=== PATIENT | female | born 1985 | race Two or more races ===

== ENCOUNTER 2020-12-30 19:00 | Inpatient (IN) | payer BC ==
[2020-12-30 20:19] VITALS: BMI 28.8
[2020-12-30] MEDS ORDERED: DINOPROSTONE 10 MG VAGINAL SUPPOSITORY VG ONE (20:45)
[2020-12-30] MEDS ORDERED: BENZOCAINE 28 GM HEMORRHOIDAL OINTMENT TP PRN (21:18)
[2020-12-30] MEDS ORDERED: BENZOCAINE 20% 57 GM BOTTLE TP PRN (21:18)
[2020-12-30] MEDS ORDERED: ACETAMINOPHEN 325 MG TABLET (FP) PO PRN (21:18)
[2020-12-30] MEDS ORDERED: BISACODYL 10 MG SUPP.RECT RC PRN (21:18)
[2020-12-30] MEDS ORDERED: METHYLERGONOVINE MALEATE 0.2 MG/1 ML AMP IM PRN (21:18)
[2020-12-30] MEDS ORDERED: IBUPROFEN 600 MG TABLET (FP) PO PRN (21:18)
[2020-12-30] MEDS ORDERED: WITCH HAZEL 50% (TUCKS) 40 PAD/JAR PAD TP PRN (21:18)
[2020-12-30] MEDS ORDERED: OXYTOCIN 20 UNITS in 0.9% NS 1,000 ML IV SCH (21:30)
[2020-12-30 23:41] LABS: BASO % 0.3 % (0-2.0); EOS % 0.7 % (0-4.5); HEMATOCRIT 38.6 % (32.4-45.2); HEMOGLOBIN 13.4 GM/dL (10.7-15.3); LYMPH % 24.9 % (8-40); MCH 33.2 pg (25.7-33.7); MCHC 34.7 g/dl (32.0-36.0); MEAN CELL VOLUME 95.9 fl (80-96); MEAN PLT VOLUME 8.9 fl (7.5-11.1); MONO % 7.5 % (3.8-10.2); NEUT % 66.6 % (42.8-82.8); PLATELET COUNT 272 10^3/uL (134-434); RBC 4.02 M/mm3 (3.60-5.2); WHITE BLOOD COUNT 12.3 K/mm3 (4.0-10.0)
[2020-12-30 23:45] LABS: INR 0.86 (0.83-1.09); PROTHROMBIN TIME (PATIENT) 10.5 SEC (9.7-13.0)
[2020-12-30 23:48] LABS: ACTIVATED PTT 25.3 SECONDS (25.2-36.5)
[2020-12-30 23:59] LABS: CALCIUM 8.6 mg/dL (8.5-10.1)
[2020-12-31 00:03] LABS: CREATININE 0.6 mg/dL (0.55-1.3)
[2020-12-31 00:57] LABS: HIV INTERPRETATION NEGATIVE (NEGATIVE)
[2020-12-31] MEDS: ELECTROLYTE-148 SOLN 1,000 ML IV SCH ×2 (06:05→13:00)
[2020-12-31] MEDS ORDERED: FERROUS SO4 325 MG TABLET (FP) PO SCH (08:00)
[2020-12-31] MEDS ORDERED: OXYTOCIN 30 UNITS in 0.9% NS 30 UNIT/500 ML INFUS.BAG IVPB ONE ×2 (09:20→16:21)
[2020-12-31] MEDS: OXYTOCIN 30 UNITS in 0.9% NS 30 UNIT/500 ML INFUS.BAG IVPB SCH (09:20)
[2020-12-31] MEDS ORDERED: PRENATAL VITAMINS W/ FOLIC ACID TABLET (FP) PO SCH (10:00)
[2020-12-31] MEDS ORDERED: valACYclovir HCL 500 MG TABLET (FP) PO ONE (21:30)
[2020-12-31] MEDS ORDERED: LEVOTHYROXINE NA 25 MCG TABLET (FP) PO ONE (21:30)
[2020-12-31] MEDS ORDERED: SENNOSIDES/DOCUSATE COMBO (SENNA PLUS) TABLET (UD) PO PRN (22:00)
[2021-01-01] MEDS ORDERED: morphine SULFATE/PF 0.5 MG/ML (2cc Syringe - QUVA) ONE (01:48)
[2021-01-01] MEDS ORDERED: IBUPROFEN 800 MG/8 ML IJ IVPB PRN (03:10)
[2021-01-01] MEDS ORDERED: ACETAMINOPHEN 1000 MG/100 ML VIAL (NON FORMULARY) IVPB PRN (03:10)
[2021-01-01] MEDS ORDERED: CITRIC ACID/SODIUM CITRATE 30 ML UNIT-DOSE CUP PO ONE (03:10)
[2021-01-01] MEDS ORDERED: SENNOSIDES/DOCUSATE COMBO (SENNA PLUS) TABLET (UD) PO PRN (03:10)
[2021-01-01] MEDS ORDERED: ONDANSETRON 4 MG/2 ML VIAL IVPB PRN (03:10)
[2021-01-01] MEDS ORDERED: OXYTOCIN 20 UNITS in 0.9% NS 20 UNIT/1,000 ML INFUS.BAG IV SCH (03:15)
[2021-01-01 03:51] LABS: HEMATOCRIT 34.7 % (32.4-45.2); HEMOGLOBIN 11.7 GM/dL (10.7-15.3); MCH 32.5 pg (25.7-33.7); MCHC 33.7 g/dl (32.0-36.0); MEAN CELL VOLUME 96.4 fl (80-96); MEAN PLT VOLUME 8.4 fl (7.5-11.1); PLATELET COUNT 231 10^3/uL (134-434); RDW 14.3 % (11.6-15.6); WHITE BLOOD COUNT 23.2 K/mm3 (4.0-10.0)
[2021-01-01] MEDS: ACETAMINOPHEN 325 MG TABLET (FP) PO PRN ×2 (04:00→21:01)
[2021-01-01] MEDS: METHYLERGONOVINE MALEATE 0.2 MG TABLET (FP) PO SCH ×5 (04:00→19:56)
[2021-01-01] MEDS ORDERED: OXYTOCIN 20 UNITS in 0.9% NS 20 UNIT/1,000 ML INFUS.BAG IV ONE ×2 (04:06→05:06)
[2021-01-01] MEDS ORDERED: METHYLERGONOVINE MALEATE 0.2 MG TABLET (FP) ONE (04:16)
[2021-01-01] MEDS ORDERED: IBUPROFEN 600 MG TABLET (FP) PO ONE (04:19)
[2021-01-01] MEDS ORDERED: ACETAMINOPHEN 325 MG TABLET (FP) ONE (04:19)
[2021-01-01] MEDS: IBUPROFEN 600 MG TABLET (FP) PO PRN ×3 (04:34→21:00)
[2021-01-01] MEDS: LEVOTHYROXINE NA 25 MCG TABLET (FP) PO SCH (06:34)
[2021-01-01] MEDS ORDERED: LEVOTHYROXINE NA 25 MCG TABLET (FP) PO ONE (07:50)
[2021-01-01 08:57] LABS: POC NITRAZINE POS
[2021-01-01] MEDS: SIMETHICONE 80 MG TAB.CHEW (FP) PO PRN ×2 (09:20→21:01)
[2021-01-01] MEDS ORDERED: CEFAZOLIN 2 GM in DEXTROSE 5%-WATER - 50 ML IVPB SCH (10:00)
[2021-01-01] MEDS: CEFAZOLIN 2 GM in DEXTROSE 5%-WATER 100 ML IVPB SCH ×2 (10:31→18:14)
[2021-01-01] MEDS: valACYclovir HCL 500 MG TABLET (FP) PO SCH (10:31)
[2021-01-01] MEDS: OXYTOCIN 30 UNITS in 0.9% NS 30 UNIT/500 ML INFUS.BAG IVPB SCH (20:54)
[2021-01-01] MEDS: ELECTROLYTE-148 SOLN 1,000 ML IV SCH (20:55)
[2021-01-02] MEDS: METHYLERGONOVINE MALEATE 0.2 MG TABLET (FP) PO SCH (00:17)
[2021-01-02] MEDS ORDERED: BISACODYL 10 MG SUPP.RECT RC PRN (03:10)
[2021-01-02] MEDS: LEVOTHYROXINE NA 25 MCG TABLET (FP) PO SCH (06:28)
[2021-01-02 08:22] LABS: BASO % 0.3 % (0-2.0); EOS % 0.3 % (0-4.5); HEMATOCRIT 26.9 % (32.4-45.2); HEMOGLOBIN 9.3 GM/dL (10.7-15.3); LYMPH % 13.2 % (8-40); MCH 33.7 pg (25.7-33.7); MCHC 34.7 g/dl (32.0-36.0); MEAN CELL VOLUME 97.1 fl (80-96); MEAN PLT VOLUME 8.4 fl (7.5-11.1); MONO % 7.6 % (3.8-10.2); NEUT % 78.6 % (42.8-82.8); PLATELET COUNT 249 10^3/uL (134-434); RBC 2.77 M/mm3 (3.60-5.2); RDW 14.5 % (11.6-15.6); WHITE BLOOD COUNT 16.7 K/mm3 (4.0-10.0)
[2021-01-02] MEDS: IBUPROFEN 600 MG TABLET (FP) PO PRN ×2 (08:37→15:45)
[2021-01-02] MEDS: valACYclovir HCL 500 MG TABLET (FP) PO SCH (11:21)
[2021-01-02] MEDS: ACETAMINOPHEN 325 MG TABLET (FP) PO PRN (13:36)
[2021-01-02] MEDS: oxyCODONE HCL 5 MG TABLET PO PRN (20:51)
[2021-01-02] MEDS: SIMETHICONE 80 MG TAB.CHEW (FP) PO PRN (20:52)
[2021-01-03] MEDS: LEVOTHYROXINE NA 25 MCG TABLET (FP) PO SCH (06:10)
[2021-01-03] MEDS: ACETAMINOPHEN 325 MG TABLET (FP) PO PRN (07:15)
[2021-01-03] MEDS: oxyCODONE HCL 5 MG TABLET PO PRN (07:15)
[2021-01-03] MEDS: SIMETHICONE 80 MG TAB.CHEW (FP) PO PRN (07:15)
[2021-01-03] MEDS: valACYclovir HCL 500 MG TABLET (FP) PO SCH (11:23)
[2021-01-03] MEDS: IBUPROFEN 600 MG TABLET (FP) PO PRN (11:26)
[2021-01-03 11:48] LABS: BASO % 0.4 % (0-2.0); EOS % 1.4 % (0-4.5); HEMATOCRIT 23.4 % (32.4-45.2); HEMOGLOBIN 8.2 GM/dL (10.7-15.3); LYMPH % 22.1 % (8-40); MCH 33.5 pg (25.7-33.7); MCHC 34.8 g/dl (32.0-36.0); MEAN CELL VOLUME 96.1 fl (80-96); MEAN PLT VOLUME 8.1 fl (7.5-11.1); MONO % 6.1 % (3.8-10.2); PLATELET COUNT 267 10^3/uL (134-434); RBC 2.44 M/mm3 (3.60-5.2); RDW 14.3 % (11.6-15.6); WHITE BLOOD COUNT 11.4 K/mm3 (4.0-10.0)
[2021-01-03 11:59] VITALS: BP 113/73; PULSE 86
[2021-01-03 15:40] VITALS: TEMP 98.1
== END 2021-01-03 15:50 | disposition home or self-care (01) | DRG 787 ==
LOC: JLDR 19:00 → J3W 01-01 05:09
PROVIDERS: ADMIT Specialist; ATTEND Specialist
PROC: 3E0P7VZ Introduction of Hormone into Female Reproductive, Via Natural or Artificial Opening (ICD-10-PCS; principal; 2020-12-30)
PROC: 10D00Z1 Extraction of Products of Conception, Low, Open Approach (ICD-10-PCS; 2021-01-01)
DX: O61.0 Failed medical induction of labor (principal); O98.52 Other viral diseases complicating childbirth; O62.1 Secondary uterine inertia; O76 Abnormality in fetal heart rate and rhythm complicating labor and delivery; O48.0 Post-term pregnancy; B00.9 Herpesviral infection, unspecified; O99.284 Endocrine, nutritional and metabolic diseases complicating childbirth; E03.9 Hypothyroidism, unspecified; Z3A.40 40 weeks gestation of pregnancy; Z37.0 Single live birth
CPT/HCPCS: 36415; 80048; 83986-QW; 85025; 85027; 85610; 85730; 86780; 86850; 86900; 86901; 87389

== ENCOUNTER 2022-09-22 10:00 | Inpatient (IN) | payer BC ==
[~2022-09-22 10:00] MED LIST: CITRIC ACID/SODIUM CITRATE 30 ML UNIT-DOSE CUP PO ONE; ELECTROLYTE-148 SOLN 500 ML IV SCH
[2022-09-22] MEDS ORDERED: ELECTROLYTE-148 SOLN 500 ML IV SCH (10:30)
[2022-09-22] MEDS ORDERED: ELECTROLYTE-148 SOLN 500 ML IV ONE (12:04)
[2022-09-22 12:06] VITALS: BMI 30.9
[2022-09-22] MEDS ORDERED: morphine SULFATE/PF 1 MG/2 ML (2cc Syringe - QUVA) ONE (13:14)
[2022-09-22] MEDS ORDERED: ePHEDrine SULFATE 50 MG/1 ML AMPULE ONE (13:24)
[2022-09-22] MEDS ORDERED: IBUPROFEN 600 MG TABLET (FP) PO PRN (14:09)
[2022-09-22] MEDS ORDERED: ONDANSETRON 4 MG/2 ML VIAL IVPUSH PRN (14:09)
[2022-09-22] MEDS ORDERED: ACETAMINOPHEN 325 MG TABLET (FP) PO PRN (14:09)
[2022-09-22] MEDS ORDERED: OXYTOCIN 10 UNITS/ML VIAL ONE (14:27)
[2022-09-22] MEDS ORDERED: ceFAZolin SODIUM 1 GM VIAL ONE (14:27)
[2022-09-22] MEDS: OXYTOCIN 20 UNITS in 0.9% NS 20 UNIT/1,000 ML INFUS.BAG IV SCH (14:30)
[2022-09-22] MEDS ORDERED: ONDANSETRON 4 MG/2 ML VIAL IVPB PRN (14:36)
[2022-09-22] MEDS ORDERED: SENNOSIDES/DOCUSATE COMBO (SENNA PLUS) TABLET (UD) PO PRN (14:36)
[2022-09-22] MEDS ORDERED: METHYLERGONOVINE MALEATE 0.2 MG TABLET (FP) PO PRN (14:36)
[2022-09-22] MEDS ORDERED: OXYTOCIN 20 UNITS in 0.9% NS 20 UNIT/1,000 ML INFUS.BAG IV ONE (14:37)
[2022-09-22] MEDS ORDERED: METHYLERGONOVINE MALEATE 0.2 MG/1 ML AMP IM ONE ×3 (15:34→18:30)
[2022-09-22 16:17] VITALS: RESP 18
[2022-09-22] MEDS ORDERED: ACETAMINOPHEN INJECTION 100 ML IVPB ONE (16:18)
[2022-09-22] MEDS: ACETAMINOPHEN 1000 MG/100 ML BAG IVPB PRN ×2 (16:21→22:54)
[2022-09-22] MEDS: IBUPROFEN 800 MG/8 ML IJ IVPB PRN (17:34)
[2022-09-23] MEDS: OXYTOCIN 20 UNITS in 0.9% NS 20 UNIT/1,000 ML INFUS.BAG IV SCH ×2 (00:06→15:26)
[2022-09-23] MEDS: IBUPROFEN 800 MG/8 ML IJ IVPB PRN (02:40)
[2022-09-23] MEDS: SIMETHICONE 80 MG TAB.CHEW (FP) PO PRN ×3 (05:16→20:38)
[2022-09-23] MEDS: ACETAMINOPHEN 1000 MG/100 ML BAG IVPB PRN (05:16)
[2022-09-23 07:43] LABS: BASO % 0.2 % (0-2.0); EOS % 0.3 % (0-4.5); HEMATOCRIT 25.8 % (32.4-45.2); HEMOGLOBIN 8.7 GM/dL (10.7-15.3); LYMPH % 13.6 % (8-40); MCH 31.9 pg (25.7-33.7); MCHC 33.9 g/dl (32.0-36.0); MEAN CELL VOLUME 93.9 fl (80-96); MEAN PLT VOLUME 8.6 fl (7.5-11.1); MONO % 6.9 % (3.8-10.2); PLATELET COUNT 221 10^3/uL (134-434); RBC 2.74 M/mm3 (3.60-5.2); RDW 13.9 % (11.6-15.6); WHITE BLOOD COUNT 15.2 K/mm3 (4.0-10.0)
[2022-09-23] MEDS: IBUPROFEN 600 MG TABLET (FP) PO PRN ×2 (09:25→20:38)
[2022-09-23] MEDS: PRENATAL VITAMINS W/ FOLIC ACID TABLET (FP) PO SCH (09:25)
[2022-09-23] MEDS: DOCUSATE SODIUM 100 MG CAPSULE (FP) PO SCH ×3 (11:26→22:10)
[2022-09-23] MEDS: FERROUS SO4 325 MG TABLET (FP) PO SCH ×3 (11:26→22:10)
[2022-09-23] MEDS: oxyCODONE HCL 5 MG TABLET PO PRN ×2 (11:27→17:43)
[2022-09-23] MEDS ORDERED: BISACODYL 10 MG SUPP.RECT RC PRN (14:37)
[2022-09-23] MEDS: ACETAMINOPHEN 325 MG TABLET (FP) PO PRN ×2 (15:30→22:10)
[2022-09-24] MEDS: SIMETHICONE 80 MG TAB.CHEW (FP) PO PRN ×2 (04:29→21:13)
[2022-09-24] MEDS: IBUPROFEN 600 MG TABLET (FP) PO PRN ×3 (04:29→21:14)
[2022-09-24] MEDS: DOCUSATE SODIUM 100 MG CAPSULE (FP) PO SCH ×3 (05:18→21:13)
[2022-09-24] MEDS: FERROUS SO4 325 MG TABLET (FP) PO SCH ×3 (05:18→21:15)
[2022-09-24] MEDS: PRENATAL VITAMINS W/ FOLIC ACID TABLET (FP) PO SCH (09:06)
[2022-09-24] MEDS: ACETAMINOPHEN 325 MG TABLET (FP) PO PRN (12:47)
[2022-09-24] MEDS: oxyCODONE HCL 5 MG TABLET PO PRN (12:47)
[2022-09-25] MEDS: ACETAMINOPHEN 325 MG TABLET (FP) PO PRN (00:37)
[2022-09-25] MEDS: DOCUSATE SODIUM 100 MG CAPSULE (FP) PO SCH (06:23)
[2022-09-25] MEDS: FERROUS SO4 325 MG TABLET (FP) PO SCH (06:23)
[2022-09-25] MEDS: IBUPROFEN 600 MG TABLET (FP) PO PRN ×2 (06:24→10:26)
[2022-09-25] MEDS: SIMETHICONE 80 MG TAB.CHEW (FP) PO PRN ×2 (06:24→10:26)
[2022-09-25 07:55] VITALS: BP 118/67; PULSE 92; TEMP 97.9
[2022-09-25] MEDS: PRENATAL VITAMINS W/ FOLIC ACID TABLET (FP) PO SCH (10:17)
== END 2022-09-25 11:05 | disposition home or self-care (01) | DRG 788 ==
LOC: JLDR 10:00 → J3W 16:45
PROVIDERS: ADMIT Specialist; ATTEND Specialist
PROC: 10D00Z1 Extraction of Products of Conception, Low, Open Approach (ICD-10-PCS; principal; 2022-09-22)
DX: O34.211 Maternal care for low transverse scar from previous cesarean delivery (principal); O30.033 Twin pregnancy, monochorionic/diamniotic, third trimester; Z3A.37 37 weeks gestation of pregnancy; Z37.0 Single live birth
CPT/HCPCS: 36415; 85025; 88304-TC; 88307-TC